=== PATIENT | female | born 1975 | race Caucasian/White ===

== ENCOUNTER 2017-10-18 10:26 | Outpatient (CLI) | payer BC | END 2017-10-18 10:27 | disposition home or self-care (01) | LOC: BICMAMMO 10:26 | PROVIDERS: ATTEND Student in an Organized Health Care Education/Training Program | DX: Z12.31 Encounter for screening mammogram for malignant neoplasm of breast (principal) | CPT/HCPCS: 77063 ==

== ENCOUNTER 2018-10-20 14:03 | Outpatient (CLI) | payer BC | END 2018-10-20 14:04 | disposition home or self-care (01) | LOC: BICMAMMO 14:03 | PROVIDERS: ATTEND Student in an Organized Health Care Education/Training Program | DX: Z12.31 Encounter for screening mammogram for malignant neoplasm of breast (principal) | CPT/HCPCS: 77063; 77067 ==

== ENCOUNTER 2019-10-21 10:47 | Outpatient (CLI) | payer BC ==
--- NOTE | 2019-10-21 13:34 | MMO ---
Bilateral MAMMO Bilat Screen [facility]. CLINICAL HISTORY: Patient is 43 years old and is seen for screening. The patient has no family history of breast cancer. The patient has no personal history of cancer. VIEWS: The views performed were: bilateral craniocaudal with tomosynthesis and bilateral mediolateral oblique with tomosynthesis. FILMS COMPARED: The present examination has been compared to prior imaging studies performed at [facility] on 10/14/2015, 10/15/2016, 10/18/2017 and 10/20/2018. This study has been interpreted with the assistance of computer-aided detection. MAMMOGRAM FINDINGS: The breasts are heterogeneously dense, which could obscure a lesion on mammography. There is a new equal density, oval mass seen in the posterior region of the left breast at 2 o'clock. In the right breast, there are no suspicious masses, calcifications or areas of architectural distortion. IMPRESSION: NEW MASS IN THE LEFT BREAST REQUIRES ADDITIONAL EVALUATION. AN ULTRASOUND EXAM IS RECOMMENDED IF NEEDED. ADDITIONAL IMAGING. THE RESULTS OF THIS EXAM WERE SENT TO THE PATIENT. ACR BI-RADS Category 0 - Incomplete: Need additional imaging evaluation. [facility] will notify the patient of the need for additional imaging services. MAMMOGRAPHY NOTE: 1. A negative mammogram report should not delay a biopsy if a dominant of clinically suspicious mass is present. 2. Approximately 10% to 15% of breast cancers are not detected by mammography. 3. Adenosis and dense breasts may obscure an underlying neoplasm. Reported by: SILVER HOLT MD Electonically Signed: [id number]
== END 2019-10-21 10:48 | disposition home or self-care (01) ==
LOC: BICMAMMO 10:47
PROVIDERS: ATTEND Family Medicine
DX: Z12.31 Encounter for screening mammogram for malignant neoplasm of breast (principal); N63.20 Unspecified lump in the left breast, unspecified quadrant
CPT/HCPCS: 77063; 77067

== ENCOUNTER 2019-10-27 12:37 | Outpatient (CLI) | payer BC ==
--- NOTE | 2019-10-27 14:07 | MMO ---
Left Breast MAMMO Unilat Diag [facility]. CLINICAL HISTORY: Patient is 43 years old and is seen for additional evaluation requested at current screening. The patient has no family history of breast cancer. The patient has no personal history of cancer. VIEWS: The views performed were: left craniocaudal spot compression with tomosynthesis; left mediolateral oblique spot compression with tomosynthesis; left mediolateral; and left mediolateral with tomosynthesis. FILMS COMPARED: The present examination has been compared to prior imaging studies performed at [facility] on 10/18/2017, 10/20/2018, 10/21/2019 and 10/27/2019. This study has been interpreted with the assistance of computer-aided detection. MAMMOGRAM FINDINGS: The breast is heterogeneously dense, which could obscure a lesion on mammography. Additional evaluation was performed for the oval mass in the left breast, 2 o'clock seen on 10/21/2019. On the present examination, there is an equal density, oval mass in the posterior region of the left breast at 3 o'clock. The mass was shown to be a cyst on ultrasound. Numerous additional cysts found by ultrasound in the outer aspect of the left breast. There are no suspicious masses, suspicious calcifications, or new areas of architectural distortion. IMPRESSION: THERE IS NO MAMMOGRAPHIC EVIDENCE OF MALIGNANCY. THE FINDINGS AND RECOMMENDATIONS WERE DISCUSSED WITH THE PATIENT PRIOR TO HER LEAVING THE CENTER. A ROUTINE FOLLOW-UP MAMMOGRAM IN 1 YEAR IS RECOMMENDED. THE RESULTS OF THIS EXAM WERE SENT TO THE PATIENT. ACR BI-RADS Category 2 - Benign finding MAMMOGRAPHY NOTE: 1. A negative mammogram report should not delay a biopsy if a dominant of clinically suspicious mass is present. 2. Approximately 10% to 15% of breast cancers are not detected by mammography. 3. Adenosis and dense breasts may obscure an underlying neoplasm. Reported by: SILVER HOLT MD Electonically Signed: [id number]
--- NOTE | 2019-10-27 15:05 | ULT ---
LEFT BREAST DIAGNOSTIC ULTRASOUND: INDICATIONS: Follow up oval mass in the outer aspect of the left breast at approximately the 2 o'clock to 3 o'cloc k position. FINDINGS: There is a 6 mm x 5 mm x 4 mm oval cyst that likely corresponds to the mammographic abnormality. Ther e are numerous additional cysts within the outer aspect of the left breast. There is another addition al enlarged cyst seen, measuring 5 x 4 mm at the left breast 4 o'clock position. IMPRESSION: BI-RADS category 2 - benign. The mammographic abnormality within the outer aspect of the left breast likely corresponds to a 6 mm cyst in the left breast 3 o'clock position, 5 cm from the nipple. POS: OFF
== END 2019-10-27 12:38 | disposition home or self-care (01) ==
LOC: BICMAMMO 12:37
PROVIDERS: ATTEND Family Medicine
DX: N63.20 Unspecified lump in the left breast, unspecified quadrant (principal)
CPT/HCPCS: G0279

== ENCOUNTER 2020-09-12 12:17 | Outpatient (CLI) | payer BC ==
--- NOTE | 2020-09-12 13:58 | CT ---
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 Bilateral external auditory canals and bilateral mastoid antra, are clear. Right middle ear cavity, right mastoid antrum, and almost all of the right mastoid air cells, are amanda ar. Partial opacification of a few right posterior mastoid air cells consistent with minimal mastoid effusion. No evidence of otosclerosis. Scutum is intact bilaterally. No obvious dehiscence of tegmen tympani bilaterally. There is a thin broad layer of soft tissue density material lining the anterior and inferior aspects of the left hypotympanum. This is contiguous with and abuts the manubrium of the malleus. 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 The left stapes is either very thin and attenuated or partial ly absent. The left mesotympanum and epitympanum are clear. Left mastoid antrum is clear. There is a relative pa ucity of pneumatized left mastoid air cells compared to the right. Some of the left posterior mastoid air cells are opacified. IMPRESSION: 1.) The manubrium of the left malleus abuts a thin broad layer of soft tissue density at the floor of the hypotympanum and anterior aspect of the left middle ear cavity. This could cause conductive hearing loss. 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 This would also cause conductive hearing loss.
== END 2020-09-12 12:18 | disposition home or self-care (01) ==
LOC: SCSCT 12:17
PROVIDERS: ATTEND Otolaryngology Plastic Surgery within the Head & Neck
DX: H90.72 Mixed conductive and sensorineural hearing loss, unilateral, left ear, with unrestricted hearing on the contralateral side (principal); M79.89 Other specified soft tissue disorders
CPT/HCPCS: 70480

== ENCOUNTER 2020-10-24 15:52 | Outpatient (CLI) | payer BC ==
--- NOTE | 2020-10-24 16:51 | MMO ---
Bilateral MAMMO Bilat Screen [facility]. CLINICAL HISTORY: Patient is 44 years old and is seen for screening. The patient has no family history of breast cancer. The patient has no personal history of cancer. VIEWS: The views performed were: bilateral craniocaudal with tomosynthesis; bilateral mediolateral oblique with tomosynthesis; and bilateral exaggerated craniocaudal. FILMS COMPARED: The present examination has been compared to prior imaging studies performed at [facility] on 10/20/2018, 10/21/2019 and 10/27/2019. This study has been interpreted with the assistance of computer-aided detection. MAMMOGRAM FINDINGS: The breasts are heterogeneously dense, which could obscure a lesion on mammography. Benign calcifications are noted bilaterally. Nodularity is stable in the left upper outer breast. There are no suspicious masses, suspicious calcifications, or new areas of architectural distortion. IMPRESSION: THERE IS NO MAMMOGRAPHIC EVIDENCE OF MALIGNANCY. A ROUTINE FOLLOW-UP MAMMOGRAM IN 1 YEAR IS RECOMMENDED. THE RESULTS OF THIS EXAM WERE SENT TO THE PATIENT. ACR BI-RADS Category 2 - Benign finding MAMMOGRAPHY NOTE: 1. A negative mammogram report should not delay a biopsy if a dominant of clinically suspicious mass is present. 2. Approximately 10% to 15% of breast cancers are not detected by mammography. 3. Adenosis and dense breasts may obscure an underlying neoplasm. Reported by: ABEL YIN MD Electonically Signed: [id number]
== END 2020-10-24 15:53 | disposition home or self-care (01) ==
LOC: BICMAMMO 15:52
PROVIDERS: ATTEND Family Medicine
DX: Z12.31 Encounter for screening mammogram for malignant neoplasm of breast (principal)
CPT/HCPCS: 77063; 77067

== ENCOUNTER 2021-10-30 10:02 | Outpatient (CLI) | payer BC | END 2021-10-30 10:03 | disposition home or self-care (01) | LOC: BICMAMMO 10:02 | PROVIDERS: ATTEND Family Medicine | DX: Z12.31 Encounter for screening mammogram for malignant neoplasm of breast (principal); R92.1 Mammographic calcification found on diagnostic imaging of breast; N63.10 Unspecified lump in the right breast, unspecified quadrant | CPT/HCPCS: 77063; 77067 ==

== ENCOUNTER 2021-11-01 09:41 | Outpatient (CLI) | payer BC | END 2021-11-01 09:42 | disposition home or self-care (01) | LOC: BICMAMMO 09:41 | PROVIDERS: ATTEND Family Medicine | DX: N63.15 Unspecified lump in the right breast, overlapping quadrants (principal) | CPT/HCPCS: G0279 ==

== ENCOUNTER 2024-07-03 09:30 | Outpatient (CLI) | payer BC | END 2024-07-03 09:31 | disposition home or self-care (01) | LOC: SCSMRI 09:30 | PROVIDERS: ATTEND Neurological Surgery | DX: M47.22 Other spondylosis with radiculopathy, cervical region (principal); M48.02 Spinal stenosis, cervical region; M25.78 Osteophyte, vertebrae; M40.50 Lordosis, unspecified, site unspecified | CPT/HCPCS: 72141 ==